=== PATIENT | male | born 1975 | race Two or more races ===

== ENCOUNTER 2020-11-21 14:05 | Outpatient (CLI) | payer OTHER | END 2020-11-21 17:19 | disposition home or self-care (01) | LOC: OFIC 805 14:05 | PROVIDERS: ATTEND Otolaryngology Otology & Neurotology | DX: H72.92 Unspecified perforation of tympanic membrane, left ear (principal); H90.12 Conductive hearing loss, unilateral, left ear, with unrestricted hearing on the contralateral side ==